=== PATIENT | male | born 1950 | race Caucasian/White ===

== ENCOUNTER 2021-01-08 20:31 | Inpatient (IN) ==
[2021-01-08 20:56] LABS: Basophils # 0.1 K/mcL (0.0-0.2); Basophils % 0.5 %; Eosinophils # 0.2 K/mcL (0.0-0.6); Eosinophils % 1.6 %; Hematocrit 54.6 % (37.5-50.1); Hemoglobin 17.8 g/dL (12.9-16.9); Immature Granulocytes % 0.6 % (0-4); Lymphocytes % 15.1 %; Mean Corpuscular HGB Conc 32.6 g/dL (31.6-35.5); Mean Corpuscular Hemoglobin 29.2 pg (28.0-33.3); Mean Corpuscular Volume 89.5 fL (83.0-100.0); Mean Platelet Volume 11.1 fL (9.4-12.4); Monocytes % 7.1 %; Neutrophils # 10.1 K/mcL (1.6-8.9); Platelet Count 314 K/mcL (140-400); Red Cell Distribution Width 13.2 % (11.5-14.5); Segmented Neutrophils % 75.1 %; White Blood Count 13.4 K/mcL (4.3-11.1)
[2021-01-08 21:17] LABS: BUN/Creatinine Ratio 16 (6-26); Blood Urea Nitrogen 15 mg/dL (8-23); Calcium 9.6 mg/dL (8.6-10.3); Carbon Dioxide 26 mEq/L (23-29); Chloride 100 mEq/L (98-107); Glucose 311 mg/dL (70-105); Osmolality,Calculated 293 (280-300); Potassium 4.5 mEq/L (3.5-5.1); Sodium 135 mEq/L (136-145); Troponin I 0.29 ng/mL (< 0.04); eGFR For African Americans > 60 (> 60); eGFR For Non-African Americans > 60 (> 60)
[2021-01-08] MEDS ORDERED: *HR* Heparin 5,000 UNIT/ML VIAL IVP PRN (21:25)
[2021-01-08] MEDS ORDERED: *HR* Heparin 5,000 UNIT/ML VIAL IVP ONE (21:25)
[2021-01-08] MEDS: Heparin 25,000UNIT/250ML 1/2NS 25,000 UNIT/250 ML IV.SOLN IVC SCH (21:38)
[2021-01-08 21:54] LABS: Heparin anti-factor XA UFH < 0.04 IU/mL (0.30-0.70)
[2021-01-08 21:55] LABS: INR 1.2; Prothrombin Time 13.4 Seconds (9.4-12.1)
[2021-01-08] MEDS ORDERED: Furosemide 40 MG/4 ML VIAL IVP ONE (22:09)
[2021-01-08] MEDS ORDERED: Ipratropium/Albuterol Neb 3 ML IH ONE (22:09)
[2021-01-08] MEDS ORDERED: Aspirin 325 MG TABLET PO ONE (22:24)
[2021-01-08] MEDS ORDERED: Naloxone 0.4 MG/ML INJ IVP PRN (22:27)
[2021-01-08] MEDS ORDERED: Perflutren Lipid Microsphere 1.3 ML in 0.9 % Sodium Chloride 8.7 ML IVP PRN (22:27)
[2021-01-08] MEDS ORDERED: Melatonin 3 MG TABLET PO PRN (22:27)
[2021-01-08] MEDS ORDERED: D5% in Water 1,000 ML IVC PRN (22:37)
[2021-01-08] MEDS ORDERED: Dextrose Gel 15 GM/37.5 ML TUBE PO PRN ×2 (22:37)
[2021-01-08] MEDS ORDERED: *HR* Dextrose 50 % in Water (Syg) 50 ML SYRINGE IVP PRN (22:37)
[2021-01-08 22:58] LABS: Influenza A PCR Negative (Negative); Influenza B PCR Negative (Negative); Resp. Syncytial Virus PCR Negative (Negative); SARS-CoV-2 by PCR (In House) Negative (Negative)
[2021-01-09] MEDS: Ipratropium/Albuterol Neb 3 ML IH SCH ×4 (03:46→21:37)
[2021-01-09 04:32] LABS: Basophils # 0.1 K/mcL (0.0-0.2); Basophils % 0.4 %; Eosinophils % 0.2 %; Hemoglobin 18.2 g/dL (12.9-16.9); Immature Granulocytes % 0.7 % (0-4); Lymphocytes # 0.8 K/mcL (0.6-4.6); Lymphocytes % 5.6 %; Mean Corpuscular HGB Conc 32.2 g/dL (31.6-35.5); Mean Corpuscular Hemoglobin 28.9 pg (28.0-33.3); Monocytes # 0.2 K/mcL (0.0-1.3); Monocytes % 1.1 %; Neutrophils # 12.4 K/mcL (1.6-8.9); Platelet Count 313 K/mcL (140-400); Red Blood Count 6.29 M/mcL (4.19-5.50); Red Cell Distribution Width 13.2 % (11.5-14.5); White Blood Count 13.5 K/mcL (4.3-11.1)
[2021-01-09 04:33] LABS: Hematocrit 56.6 % (37.5-50.1)
[2021-01-09 04:51] LABS: Albumin 4.4 g/dL (3.5-5.7); Albumin/Globulin Ratio 1.3 (1.1-2.2); Bilirubin,Direct 0.1 mg/dL (0.0-0.2); Bilirubin,Indirect 0.6 mg/dL (0.0-1.0); Bilirubin,Total 0.7 mg/dL (0.3-1.0); Globulin 3.5 g/dL (2.4-3.5); Total Protein 7.9 g/dL (6.4-8.9)
[2021-01-09 04:52] LABS: BUN/Creatinine Ratio 17 (6-26); Blood Urea Nitrogen 18 mg/dL (8-23); Calcium 9.5 mg/dL (8.6-10.3); Carbon Dioxide 23 mEq/L (23-29); Chloride 99 mEq/L (98-107); Glucose 388 mg/dL (70-105); Magnesium 1.6 mg/dL (1.6-2.6); Osmolality,Calculated 296 (280-300); Potassium 5.5 mEq/L (3.5-5.1); Sodium 134 mEq/L (136-145); eGFR For African Americans > 60 (> 60); eGFR For Non-African Americans > 60 (> 60)
[2021-01-09] MEDS: *HR* Heparin 5,000 UNIT/ML VIAL IVP PRN ×2 (05:08→13:07)
[2021-01-09] MEDS ORDERED: Insulin LISPRO 300 UNITS/3 ML VIAL SUBQ ONE (05:32)
[2021-01-09] MEDS: Budesonide/Formoterol 160/4.5 1 PUFF INH IH SCH ×2 (09:14→21:37)
[2021-01-09] MEDS ORDERED: Ipratropium/Albuterol Neb 3 ML IH PRN (09:23)
[2021-01-09] MEDS: MethylPREDNISolone 40 MG/ML VIAL IVP SCH ×2 (09:26→16:46)
[2021-01-09] MEDS: Aspirin 81 MG TAB.CHEW PO SCH (09:27)
[2021-01-09] MEDS: Insulin LISPRO 300 UNITS/3 ML VIAL SUBQ SCH ×4 (09:27→20:28)
[2021-01-09] MEDS: Furosemide 40 MG/4 ML VIAL IVP SCH ×2 (09:27→16:45)
[2021-01-09] MEDS ORDERED: E-Z-HD (BARIUM SULF) SUSPENSION PO ONE (14:27)
[2021-01-09] MEDS ORDERED: E-Z-PAQUE (BARIUM SULF) SUSP 1 BOTTLE PO ONE (14:27)
[2021-01-09] MEDS: Heparin 25,000UNIT/250ML 1/2NS 25,000 UNIT/250 ML IV.SOLN IVC SCH (19:55)
[2021-01-09] MEDS: Insulin DETEMIR 100 UNIT/ML X5UNITS SUBQ SCH (20:26)
[2021-01-09] MEDS: [UNRECOGNIZED DRUG - OTHER] OP SCH (22:55)
[2021-01-09] MEDS ORDERED: Ipratropium/Albuterol Neb 3 ML IH SCH (23:03)
[2021-01-10] MEDS: MethylPREDNISolone 40 MG/ML VIAL IVP SCH ×4 (00:04→23:59)
[2021-01-10] MEDS ORDERED: *HR* Metoprolol 5 MG/5 ML VIAL IVP ONE ×7 (01:41→12:49)
[2021-01-10] MEDS ORDERED: Insulin LISPRO 300 UNITS/3 ML VIAL SUBQ ONE (01:45)
[2021-01-10] MEDS ORDERED: *HR* LORazepam 2 MG/ML VIAL IVP ONE ×2 (02:07→02:44)
[2021-01-10] MEDS ORDERED: *HR* LORazepam 2 MG/ML VIAL ONE (02:08)
[2021-01-10 02:14] LABS: Basophils % 0.2 %; Hemoglobin 18.5 g/dL (12.9-16.9); Immature Granulocytes % 0.6 % (0-4); Lymphocytes # 1.3 K/mcL (0.6-4.6); Lymphocytes % 7.5 %; Mean Corpuscular HGB Conc 32.5 g/dL (31.6-35.5); Mean Corpuscular Hemoglobin 28.9 pg (28.0-33.3); Mean Corpuscular Volume 88.8 fL (83.0-100.0); Mean Platelet Volume 10.8 fL (9.4-12.4); Monocytes # 0.6 K/mcL (0.0-1.3); Monocytes % 3.4 %; Platelet Count 333 K/mcL (140-400); Red Blood Count 6.41 M/mcL (4.19-5.50); Red Cell Distribution Width 13.2 % (11.5-14.5); Segmented Neutrophils % 88.3 %
[2021-01-10 02:18] LABS: Hematocrit 56.9 % (37.5-50.1)
[2021-01-10 02:37] LABS: Troponin I 0.27 ng/mL (< 0.04)
[2021-01-10 02:44] LABS: Alanine Aminotransferase 24 Units/L (7-52); Albumin 4.1 g/dL (3.5-5.7); Albumin/Globulin Ratio 1.3 (1.1-2.2); Alkaline Phosphatase 82 Units/L (34-104); Aspartate Amino Transferase 14 Units/L (13-39); BUN/Creatinine Ratio 31 (6-26); Bilirubin,Total 0.6 mg/dL (0.3-1.0); Blood Urea Nitrogen 29 mg/dL (8-23); Calcium 9.6 mg/dL (8.6-10.3); Carbon Dioxide 23 mEq/L (23-29); Chloride 101 mEq/L (98-107); Globulin 3.1 g/dL (2.4-3.5); Glucose 251 mg/dL (70-105); Osmolality,Calculated 300 (280-300); Potassium 4.2 mEq/L (3.5-5.1); Sodium 138 mEq/L (136-145); Total Protein 7.2 g/dL (6.4-8.9); eGFR For African Americans > 60 (> 60); eGFR For Non-African Americans > 60 (> 60)
[2021-01-10] MEDS: Levalbuterol Neb 1.25 MG/3 ML IH SCH ×5 (03:42→20:48)
[2021-01-10] MEDS ORDERED: Amiodarone Premix 150 MG/100 ML BAG IVPB ONE (04:26)
[2021-01-10] MEDS ORDERED: Amiodarone Premix 360 MG/200 ML BAG IVC ONE (04:26)
[2021-01-10 04:52] LABS: ABG Base Excess -2 mEq/L (-2 to 3); ABG HCO3 25 mEq/L (21-27); ABG Oxygen Saturation 98 % (95-98); ABG PCO2 49 mmHg (35-45); ABG PH 7.31 pH Units (7.32-7.45); ABG PO2 117 mmHg (85-104); ABG TCO2 26 mEq/L (20-26)
[2021-01-10] MEDS: Budesonide/Formoterol 160/4.5 1 PUFF INH IH SCH ×2 (07:36→20:48)
[2021-01-10] MEDS: Furosemide 40 MG/4 ML VIAL IVP SCH ×3 (08:37→23:58)
[2021-01-10] MEDS: Aspirin 81 MG TAB.CHEW PO SCH (08:37)
[2021-01-10] MEDS: [UNRECOGNIZED DRUG - OTHER] OP SCH ×2 (08:38→21:02)
[2021-01-10] MEDS: Insulin LISPRO 300 UNITS/3 ML VIAL SUBQ SCH ×4 (08:38→21:02)
[2021-01-10] MEDS: Metoprolol XL (24 HR) Succ 25 MG TAB.ER.24H PO SCH ×2 (08:53→21:00)
[2021-01-10] MEDS ORDERED: lisinopriL 10 MG TABLET PO SCH (09:00)
[2021-01-10] MEDS ORDERED: NON-FORMULARY MEDICATION 1 EACH EACH (Fluticasone/Salmeterol [Advair 500-50 Diskus] 1 EACH IH SCH (09:00)
[2021-01-10] MEDS: Heparin 25,000UNIT/250ML 1/2NS 25,000 UNIT/250 ML IV.SOLN IVC SCH ×2 (11:27→22:15)
[2021-01-10] MEDS: Amiodarone Premix 360 MG/200 ML BAG IVC SCH ×2 (12:28→22:23)
[2021-01-10] MEDS ORDERED: *HR* FentaNYL (PF) 100 MCG/2 ML VIAL ONE (13:14)
[2021-01-10] MEDS ORDERED: *HR* Midazolam HCl 2 MG/2 ML VIAL ONE (13:14)
[2021-01-10] MEDS ORDERED: 0.9 % Sodium Chloride 2,000 ML ONE (13:14)
[2021-01-10] MEDS ORDERED: ISOVUE-370 200 ML INFUS..BTL ONE (13:15)
[2021-01-10] MEDS ORDERED: Nitroglycerin 1,000 MCG/5 ML VIAL IV ONE (13:15)
[2021-01-10] MEDS ORDERED: *HR* Heparin 10,000 UNIT/10 ML VIAL ONE (13:15)
[2021-01-10] MEDS ORDERED: Heparin 1,000 UNITS/500 mL 500 ML ONE (13:15)
[2021-01-10] MEDS ORDERED: Spironolactone 25 MG TABLET PO SCH (14:45)
[2021-01-10] MEDS ORDERED: Metoprolol XL (24 HR) Succ 25 MG TAB.ER.24H PO STA (15:13)
[2021-01-10] MEDS ORDERED: metOLazone 5 MG TABLET PO ONE (16:00)
[2021-01-10] MEDS: Insulin DETEMIR 100 UNIT/ML X5UNITS SUBQ SCH (21:00)
[2021-01-10 22:22] VITALS: TEMP 98.4
[2021-01-10 22:54] VITALS: BP 111/75; PULSE 88
[2021-01-11] MEDS: Levalbuterol Neb 1.25 MG/3 ML IH SCH (00:14)
[2021-01-11 00:17] VITALS: O2SAT 97
[2021-01-11 00:24] LABS: Hematocrit 51.5 % (37.5-50.1); Hemoglobin 16.9 g/dL (12.9-16.9); Immature Granulocytes % 0.6 % (0-4); Lymphocytes % 4.2 %; Mean Corpuscular HGB Conc 32.8 g/dL (31.6-35.5); Mean Corpuscular Hemoglobin 29.6 pg (28.0-33.3); Mean Corpuscular Volume 90.2 fL (83.0-100.0); Mean Platelet Volume 10.6 fL (9.4-12.4); Monocytes % 6.9 %; Platelet Count 343 K/mcL (140-400); Red Blood Count 5.71 M/mcL (4.19-5.50); Red Cell Distribution Width 13.2 % (11.5-14.5); Segmented Neutrophils % 88.1 %; White Blood Count 21.3 K/mcL (4.3-11.1)
[2021-01-11 00:25] LABS: Basophils % 0.2 %; Lymphocytes # 0.9 K/mcL (0.6-4.6); Monocytes # 1.5 K/mcL (0.0-1.3); Neutrophils # 18.7 K/mcL (1.6-8.9)
[2021-01-11 01:36] LABS: Alanine Aminotransferase 26 Units/L (7-52); Albumin 3.8 g/dL (3.5-5.7); Albumin/Globulin Ratio 1.3 (1.1-2.2); Alkaline Phosphatase 72 Units/L (34-104); Aspartate Amino Transferase 17 Units/L (13-39); BUN/Creatinine Ratio 35 (6-26); Bilirubin,Total 0.5 mg/dL (0.3-1.0); Blood Urea Nitrogen 45 mg/dL (8-23); Calcium 9.1 mg/dL (8.6-10.3); Carbon Dioxide 22 mEq/L (23-29); Chloride 101 mEq/L (98-107); Globulin 2.9 g/dL (2.4-3.5); Glucose 285 mg/dL (70-105); Osmolality,Calculated 306 (280-300); Potassium 4.2 mEq/L (3.5-5.1); Sodium 137 mEq/L (136-145); Total Protein 6.7 g/dL (6.4-8.9); eGFR For African Americans > 60 (> 60); eGFR For Non-African Americans 55 (> 60)
== END 2021-01-11 01:05 | disposition short-term general hospital (02) | DRG 280 ==
LOC: EMEROOARM 20:31 → 2ANU 20:31 → SUATTDRO 22:27 → 2ANU 23:02 → 2NENU 01-10 04:40
PROVIDERS: ADMIT Internal Medicine; ATTEND Hospitalist

== ENCOUNTER 2021-01-23 21:55 | Inpatient (IN) ==
[2021-01-24 00:05] LABS: Calcium 9.5 mg/dL (8.6-10.3)
[2021-01-24 00:06] LABS: Basophils # 0.1 K/mcL (0.0-0.2); Basophils % 0.4 %; Eosinophils % 0.2 %; Hematocrit 53.5 % (37.5-50.1); Hemoglobin 18.9 g/dL (12.9-16.9); Immature Granulocytes % 1.4 % (0-4); Lymphocytes # 2.1 K/mcL (0.6-4.6); Lymphocytes % 10.7 %; Mean Corpuscular HGB Conc 35.3 g/dL (31.6-35.5); Mean Corpuscular Volume 84.8 fL (83.0-100.0); Monocytes # 1.4 K/mcL (0.0-1.3); Monocytes % 7.1 %; Neutrophils # 15.9 K/mcL (1.6-8.9); Platelet Count 326 K/mcL (140-400); Red Blood Count 6.31 M/mcL (4.19-5.50); Red Cell Distribution Width 12.9 % (11.5-14.5); Segmented Neutrophils % 80.2 %; White Blood Count 19.8 K/mcL (4.3-11.1)
[2021-01-24] MEDS ORDERED: Ampicillin/Sulbactam 3,000 MG in 0.9 % Sodium Chloride Mini Bag 100 ML IVPB ONE (01:41)
[2021-01-24] MEDS ORDERED: Ondansetron 4 MG/2 ML VIAL IVP PRN (01:49)
[2021-01-24] MEDS ORDERED: Naloxone 0.4 MG/ML INJ IVP PRN (02:20)
[2021-01-24] MEDS ORDERED: Melatonin 3 MG TABLET PO PRN (02:20)
[2021-01-24 03:12] LABS: Influenza A PCR Negative (Negative); Influenza B PCR Negative (Negative); Resp. Syncytial Virus PCR Negative (Negative)
[2021-01-24 03:17] LABS: SARS-CoV-2 by PCR (In House) Negative (Negative)
[2021-01-24] MEDS ORDERED: Ipratropium/Albuterol Neb 3 ML IH PRN (03:36)
[2021-01-24] MEDS ORDERED: *HR* Dextrose 50 % in Water (Syg) 50 ML SYRINGE IVP PRN (03:39)
[2021-01-24] MEDS ORDERED: Dextrose Gel 15 GM/37.5 ML TUBE PO PRN ×2 (03:39)
[2021-01-24] MEDS ORDERED: D5% in Water 1,000 ML IVC PRN (03:39)
[2021-01-24] MEDS ORDERED: 0.9 % Sodium Chloride 1,000 ML IVC SCH (03:45)
[2021-01-24] MEDS ORDERED: *HR* Heparin 5,000 UNIT/ML VIAL SQ SCH (06:00)
[2021-01-24] MEDS ORDERED: Apixaban 5 MG TABLET PO SCH (09:00)
[2021-01-24 09:57] LABS: Basophils # 0.1 K/mcL (0.0-0.2); Basophils % 0.3 %; Eosinophils # 0.1 K/mcL (0.0-0.6); Eosinophils % 0.4 %; Hematocrit 49.7 % (37.5-50.1); Immature Granulocytes % 0.9 % (0-4); Lymphocytes # 2.2 K/mcL (0.6-4.6); Mean Corpuscular Hemoglobin 28.8 pg (28.0-33.3); Mean Corpuscular Volume 84.8 fL (83.0-100.0); Mean Platelet Volume 10.5 fL (9.4-12.4); Monocytes # 1.3 K/mcL (0.0-1.3); Monocytes % 7.2 %; Neutrophils # 14.4 K/mcL (1.6-8.9); Platelet Count 278 K/mcL (140-400); Red Blood Count 5.86 M/mcL (4.19-5.50); Red Cell Distribution Width 12.8 % (11.5-14.5); Segmented Neutrophils % 79.2 %; White Blood Count 18.1 K/mcL (4.3-11.1)
[2021-01-24 09:59] LABS: Hemoglobin 16.9 g/dL (12.9-16.9)
[2021-01-24 10:20] LABS: Magnesium 1.8 mg/dL (1.6-2.6); Phosphorous 4.7 mg/dL (2.7-4.5)
[2021-01-24] MEDS: Ipratropium/Albuterol Neb 3 ML IH SCH ×3 (10:31→20:48)
[2021-01-24] MEDS: Budesonide/Formoterol 160/4.5 1 PUFF INH IH SCH ×2 (10:32→20:48)
[2021-01-24] MEDS: cefTRIAXone 1,000 MG in Water for inj. (sterile) 10 ML IVP SCH (10:54)
[2021-01-24] MEDS: *HR* Amiodarone 200 MG TABLET PO SCH (10:55)
[2021-01-24] MEDS: Insulin LISPRO 300 UNITS/3 ML VIAL SUBQ SCH ×2 (12:20→18:22)
[2021-01-24] MEDS: Azithromycin 500 MG in 0.9 % Sodium Chloride 250 ML IVPB SCH (12:23)
[2021-01-24 14:45] LABS: Calcium 9.2 mg/dL (8.6-10.3); Potassium 4.6 mEq/L (3.5-5.1)
[2021-01-24] MEDS: Apixaban 5 MG TABLET PO SCH (20:05)
[2021-01-24] MEDS: Metoprolol XL (24 HR) Succ 50 MG TAB.ER.24H PO SCH (20:05)
[2021-01-24] MEDS ORDERED: Insulin LISPRO 300 UNITS/3 ML VIAL SUBQ SCH (21:00)
[2021-01-25 01:03] LABS: Basophils # 0.1 K/mcL (0.0-0.2); Basophils % 0.3 %; Eosinophils # 0.2 K/mcL (0.0-0.6); Eosinophils % 1.3 %; Hematocrit 47.9 % (37.5-50.1); Hemoglobin 16.3 g/dL (12.9-16.9); Immature Granulocytes % 0.9 % (0-4); Lymphocytes # 2.3 K/mcL (0.6-4.6); Lymphocytes % 15.2 %; Mean Corpuscular Volume 85.1 fL (83.0-100.0); Mean Platelet Volume 10.7 fL (9.4-12.4); Monocytes # 1.4 K/mcL (0.0-1.3); Monocytes % 8.9 %; Neutrophils # 11.2 K/mcL (1.6-8.9); Platelet Count 256 K/mcL (140-400); Red Blood Count 5.63 M/mcL (4.19-5.50); Red Cell Distribution Width 12.8 % (11.5-14.5); Segmented Neutrophils % 73.4 %; White Blood Count 15.2 K/mcL (4.3-11.1)
[2021-01-25 01:14] LABS: Albumin 3.4 g/dL (3.5-5.7); Magnesium 1.7 mg/dL (1.6-2.6); Phosphorous 3.8 mg/dL (2.7-4.5); Uric Acid 6.4 mg/dL (2.3-7.6)
[2021-01-25 01:19] LABS: Calcium 8.9 mg/dL (8.6-10.3); Potassium 4.3 mEq/L (3.5-5.1)
[2021-01-25] MEDS: Ipratropium/Albuterol Neb 3 ML IH SCH ×2 (03:57→10:48)
[2021-01-25] MEDS: Insulin LISPRO 300 UNITS/3 ML VIAL SUBQ SCH (08:35)
[2021-01-25] MEDS: Azithromycin 500 MG in 0.9 % Sodium Chloride 250 ML IVPB SCH (08:35)
[2021-01-25] MEDS: Metoprolol XL (24 HR) Succ 50 MG TAB.ER.24H PO SCH (08:37)
[2021-01-25] MEDS: *HR* Amiodarone 200 MG TABLET PO SCH (08:37)
[2021-01-25] MEDS: cefTRIAXone 1,000 MG in Water for inj. (sterile) 10 ML IVP SCH (08:37)
[2021-01-25] MEDS: Apixaban 5 MG TABLET PO SCH (08:37)
[2021-01-25] MEDS ORDERED: *HR* Amiodarone 200 MG TABLET PO SCH (09:00)
[2021-01-25] MEDS: Budesonide/Formoterol 160/4.5 1 PUFF INH IH SCH (10:48)
[2021-01-25 11:19] VITALS: BP 114/72; PULSE 67; TEMP 97.4; O2SAT 94
== END 2021-01-25 14:58 | disposition home or self-care (01) | DRG 682 ==
LOC: EMEROOARM 21:55 → 3BNU 01-24 16:00
PROVIDERS: ADMIT Internal Medicine; ATTEND Internal Medicine